=== PATIENT | male | born 1980 | race Caucasian/White ===

== ENCOUNTER 2018-04-25 15:36 | Emergency (ER) | payer OTHER ==
[2018-04-25 15:48] VITALS: BP 132/74
--- NOTE | 2018-04-25 15:58 | EDPHY ---
H & P Time Seen by Provider: 04/25/18 15:50 HPI/ROS: CHIEF COMPLAINT: Left hand laceration while at work HISTORY OF PRESENT ILLNESS: 38-year-old male with up-to-date tetanus, history of HIV positive, sustained accidental laceration to his left 4th MCP dorsal aspect when he was at work his hand slid along the piece of sheet metal. No paresthesia. No extensor deficits. No foreign body sensation. Occurred shortly prior to arrival. PHYSICAL EXAM (Prior to examination, patient consented to physical exam, hands were washed and my usual and customary physical exam procedures followed) 1) GENERAL: Well-developed, well-nourished, alert and oriented. Appears to be in no acute distress. 2) HEAD: Normocephalic 3) HEENT: sclera anicteric 4) LUNGS: Breathing comfortably. 5) SKIN: Dorsum left hand overlying the 4th MCP 2.5 cm well delineated linear laceration in a transverse manner. 6) MUSCULOSKELETAL: Able to hold extensor function at the MCP against resistance with no deficits 7) NEUROLOGIC: Full sensation two-point discrimination intact distally Smoking Status: Never smoked Constitutional: Initial Vital Signs Temperature (C) 36.8 C 04/25/18 15:43 Heart Rate 68 04/25/18 15:43 Respiratory Rate 16 04/25/18 15:43 Blood Pressure 132/74 H 04/25/18 15:43 O2 Sat (%) 96 04/25/18 15:43 O2 Delivery Mode Room Air Allergies/Adverse Reactions: Sulfa (Sulfonamide Antibiotics) Allergy (Verified 04/25/18 15:43) Home Medications: Medication Instructions Recorded Cephalexin [Keflex] 500 mg PO TID 5 Days cap 04/25/18 MDM/Departure - MDM Procedures: Procedure: Laceration repair. I explained the indications, risks and benefits for both laceration repair and anesthetic administration. Verbal consent was obtained from the patient. The laceration on the left hand was anesthetized using 0.5% bupivicaine without epinephrine. After anesthetic administered the patient was observed for a period of time and had no apparent adverse effects. The wound was cleaned, prepped, draped in normal sterile fashion and explored to its base. No foreign body seen, no foreign bodies palpated. There were no deep structures involved. No tendon injury was identified. The wound was repaired with 5 simple interrupted 5 O Prolene sutures. The wound repair was simple. The procedure was performed by myself. Patient has been informed that scarring will occur, although efforts have been made to minimize this. ED Course/Re-evaluation: Re-evaluation with serial exams. Wound has been closed primarily in the ER. Started on prophylactic antibiotics. No signs of infection at this time. History of HIV positive. States he has undetectable viral load. Followed at [place] for his HIV. This is a work comp related injury however. Return to the ER in 10 days for suture removal. Recommend wound check in 2 days either in the ER for or with his work comp. My usual and customary wound precautions instructions provided. Care of patient under supervision of secondary supervising physician Dr Dozier . - Depart Disposition: Home, Routine, Self-Care Clinical Impression: Laceration of left hand Condition: Good Instructions: Laceration (ED), Care For Your Stitches (ED) Additional Instructions: Return to the ER if you develop redness, swelling, discharge, warmth to the wound, red streaks going up your arm, or any other symptoms that concern you. Prescriptions: Cephalexin [Keflex] 500 mg PO TID 5 Days cap
== END 2018-05-05 10:28 | disposition home or self-care (01) ==
LOC: EEVIPCON 15:36
PROC: 0HQGXZZ Repair Left Hand Skin, External Approach (ICD-10-PCS; principal; 2018-04-25)
DX: S61.412A Laceration without foreign body of left hand, initial encounter (principal); Z21 Asymptomatic human immunodeficiency virus [HIV] infection status; W26.8XXA Contact with other sharp object(s), not elsewhere classified, initial encounter; Y92.89 Other specified places as the place of occurrence of the external cause; Y93.9 Activity, unspecified; Y99.0 Civilian activity done for income or pay